=== PATIENT | female | born 1985 | race Hispanic/Latino ===

== ENCOUNTER 2018-05-03 02:16 | Emergency (ER) | payer SELFPAY ==
[2018-05-03 03:30] LABS: Absolute Lymphocytes (CBC) 2.8 K/uL (0.7-4.9); Absolute Monocytes 0.6 K/uL (0.1-1.3); Absolute Neutrophil 6.3 K/uL (1.8-8.0); Basophils % 0.5 % (0-1.3); Eosinophils % 0.3 % (0-4.4); Lymphocytes % 28.7 % (15.3-44.8); MCH 29.7 pg (27.0-35.0); MCV 85.1 fL (80-100); MPV 9.9 fL (7.6-11.3); Monocytes % 5.8 % (3.3-12.3); RBC Red Blood Cell Count 4.59 M/uL (3.86-4.86)
[2018-05-03 03:39] LABS: Albumin 3.9 g/dL (3.4-5.0); Bilirubin Direct 0.1 mg/dL (0-0.2); Bilirubin Total 0.4 mg/dL (0.2-1.0); Potassium 3.9 mmol/L (3.5-5.1); Protein, Total 8.1 g/dL (6.4-8.2)
[2018-05-03] MEDS ORDERED: NA CHLORIDE 0.9% 1,000 ML ONE (03:48)
[2018-05-03] MEDS ORDERED: FENTANYL CITR 100 MCG/2 ML ONE (03:48)
[2018-05-03] MEDS ORDERED: ONDANSETRON 4 MG/2 ML VIAL ONE (03:48)
[2018-05-03] MEDS ORDERED: CEFTRIAXONE/SWI 1gm 1 GM/10 ML SYR ONE (03:48)
[2018-05-03] MEDS ORDERED: FAMOTIDINE 20 MG/2 ML VIAL IV ONE (03:49)
[2018-05-03 05:35] LABS: Urine Culture Reflex Order NOT NEEDED
[2018-05-03 05:36] LABS: Urine Mucus 1+ /HPF (NONE SEEN)
[2018-05-03 05:38] LABS: Urine Bacteria 20-50 /HPF (<20); Urine RBC <5 /HPF (NONE SEEN); Urine Trichomonas PRESENT (NONE SEEN)
[2018-05-03 05:39] LABS: Urine Blood TRACE (NEG); Urine Glucose NEGATIVE (NEG); Urine Protein NEGATIVE (NEG); Urine pH 7.5 (5.0-7.0)
[2018-05-03] MEDS ORDERED: metroNIDAZOLE 500 MG TABLET ONE (07:00)
--- NOTE | 2018-05-03 07:07 | ER ---
Nurse's Notes [facility] Name: Diane Leung Age: 33 yrs Sex: Female : 1985 Arrival Date: 05/03/2018 Time: 02:17 Bed 7 Private MD: Diagnosis: Abdominal tenderness;Cystitis;Functional dyspepsia;Trichomoniasis, unspecified;Other ovarian cysts-4.5 left adnexal cyst Presentation: 05/03 02:17 Presenting complaint: EMS states: Pt c/o epigastric pain x 2 days. Loss of appetite. tl2 Reports vomiting and constipation. Transition of care: patient was not received from another setting of care. Onset of symptoms was May 03, 2018 at 01:30. Risk Assessment: Do you want to hurt yourself or someone else? Patient reports no desire to harm self or others. Initial Sepsis Screen: Does the patient meet any 2 criteria? No. Patient's initial sepsis screen is negative. Does the patient have a suspected source of infection? No. Patient's initial sepsis screen is negative. Care prior to arrival: None. 02:17 Method Of Arrival: EMS: [facility] tl2 02:17 Acuity: LUL 3 tl2 Triage Assessment: 02:17 General: Appears in no apparent distress. uncomfortable, Behavior is calm, cooperative, tl2 appropriate for age. Pain: Complains of pain in epigastric area, right upper quadrant and left upper quadrant Pain does not radiate. Pain: Noted to be grimacing, guarding. Neuro: Level of Consciousness is awake, alert, obeys commands, Oriented to person, place, time, situation. Cardiovascular: Denies chest pain. Respiratory: Airway is patent Respiratory effort is even, unlabored, Respiratory pattern is regular, symmetrical. GI: Abdomen is flat, non-distended, Reports upper abdominal pain. : No signs and/or symptoms were reported regarding the genitourinary system. Derm: Skin is pink, warm \T\ dry. 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 - Social history:: Smoking status: Patient/guardian denies using tobacco. - Ebola Screening: : No symptoms or risks identified at this time. - Family history:: not pertinent. Screenin:22 Abuse screen: Denies threats or abuse. Nutritional screening: No deficits noted. tl2 Tuberculosis screening: No symptoms or risk factors identified. Fall Risk None identified. Assessment: 02:23 GI: Bowel sounds present X 4 quads. Abd is soft Abdomen is tender to palpation in tl2 epigastric area. 03:54 Reassessment: Patient appears in no apparent distress at this time. Patient and/or tl2 family updated on plan of care and expected duration. Pain level reassessed. Patient is alert, oriented x 3, equal unlabored respirations, skin warm/dry/pink. 05:51 Reassessment: Patient appears in no apparent distress at this time. Patient and/or tl2 family updated on plan of care and expected duration. Pain level reassessed. Pt resting calmly. Awaiting results Patient states feeling better. 07:08 Reassessment: Patient appears in no apparent distress at this time. Patient and/or tl2 family updated on plan of care and expected duration. Pain level reassessed. Patient is alert, oriented x 3, equal unlabored respirations, skin warm/dry/pink. Vital Signs: 02:17 BP 135 / 93; Pulse 73; Resp 18; Temp 99.2(O); Pulse Ox 99% on R/A; Weight 77.11 kg; tl2 Height 5 ft. 3 in. (160.02 cm); Pain 10/10; 03:54 BP 122 / 81; Pulse 54; Resp 18; Pulse Ox 98% on R/A; tl2 05:08 BP 125 / 80; Pulse 57; Resp 18; Pulse Ox 100% on R/A; tl2 05:51 BP 112 / 75; Pulse 57; Resp 18; Pulse Ox 98% on R/A; tl2 07:59 BP 115 / 70; Pulse 60; Resp 18; Temp 98.2; Pulse Ox 100% on R/A; hj 02:17 Body Mass Index 30.11 (77.11 kg, 160.02 cm) tl2 ED Course: 02:17 Patient arrived in ED. tl2 02:18 Triage completed. tl2 02:22 Arm band placed on right wrist. tl2 02:22 Patient has correct armband on for positive identification. Bed in low position. Call tl2 light in reach. Side rails up X 1. 02:23 Malcolm Ivory MD is Attending Physician. jonathan 02:46 Hortensia Keller RN is Primary Nurse. tl2 02:46 Inserted saline lock: 20 gauge in right antecubital area, using aseptic technique. tl2 Blood collected. 03:09 Urine Culture Sent. oe 03:09 Urine Microscopic Only Sent. oe 06:[address] via wheelchair. kw1 06:40 CT Abd/Pelvis - W/Contrast In Process Unspecified. EDMS 06:44 CT completed. Patient tolerated procedure well. Patient moved back from CT. kw1 07:06 Rob Medina MD is Referral Physician. jonathan 07:08 Valeria Germain MD is Referral Physician. jonathan 07:09 No provider procedures requiring assistance completed. tl2 07:58 IV discontinued, intact, bleeding controlled, No redness/swelling at site. Pressure hj dressing applied. Administered Medications: 03:54 Drug: NS 0.9% 1000 ml Route: IV; Rate: 1 bolus; Site: right antecubital; tl2 03:55 Drug: Pepcid 20 mg Route: IVP; Site: right antecubital; tl2 07:06 Follow up: Response: No adverse reaction tl2 03:55 Drug: fentaNYL (PF) 50 mcg Route: IVP; Site: right antecubital; tl2 04:30 Follow up: Response: No adverse reaction; Pain is decreased tl2 03:55 Drug: Zofran 4 mg Route: IVP; Site: right antecubital; tl2 07:07 Follow up: Response: No adverse reaction tl2 03:56 Drug: Rocephin - (cefTRIAXone) 1 grams Route: IVPB; Infused Over: 30 mins; Site: right tl2 antecubital; 07:06 Drug: Flagyl 2 grams Route: PO; tl2 07:15 Follow up: Response: No adverse reaction Outcome: 07:07 Discharge ordered by . jonathan 07:57 Discharged to home ambulatory. 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 medication usage, Demonstrated understanding of instructions, follow-up care, medications, Prescriptions given X 4. 07:59 Patient left the ED. hj Signatures: Dispatcher [employer] EDMalcolm Kaplan MD MD cha Joaquin, Henry, RN RN hj Knox, Taylor, RN RN tl2 Yan Martin Kimberly kw1 Corrections: (The following items were deleted from the chart) 02:22 02:17 Presenting complaint: EMS states: Pt c/o epigastric pain, acute onset. Pain does tl2 not radiate. tl2
--- NOTE | 2018-05-03 07:07 | EDPHYS ---
Physician Documentation [facility] Name: Diane Leung Age: 33 yrs Sex: Female : 1985 Arrival Date: 05/03/2018 Time: 02:17 Bed 7 Private MD: ED Physician Malcolm Ivory HPI: 05/03 03:15 This 33 yrs old Female presents to ER via EMS with complaints of Abdominal jonathan Pain. 03:15 The patient presents with abdominal pain in the epigastric area, in the upper abdomen. jonathan Onset: The symptoms/episode began/occurred 2 day(s) ago. The symptoms do not radiate. Associated signs and symptoms: none. The symptoms are described as crampy. Modifying factors: The symptoms are alleviated by nothing, the symptoms are aggravated by movement, pressure. Severity of pain: At its worst the pain was moderate in the emergency department the pain is unchanged. The patient has not experienced similar symptoms in the past. 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 - Social history:: Smoking status: Patient/guardian denies using tobacco. - Ebola Screening: : No symptoms or risks identified at this time. - Family history:: not pertinent. ROS: 03:15 Constitutional: Negative for fever, chills, and weight loss, Eyes: Negative for injury, jonathan pain, redness, and discharge, ENT: Negative for injury, pain, and discharge, Neck: Negative for injury, pain, and swelling, Cardiovascular: Negative for chest pain, palpitations, and edema, Respiratory: Negative for shortness of breath, cough, wheezing, and pleuritic chest pain, Back: Negative for injury and pain, : Negative for injury, bleeding, discharge, and swelling, MS/Extremity: Negative for injury and deformity, Skin: Negative for injury, rash, and discoloration, Neuro: Negative for headache, weakness, numbness, tingling, and seizure, Psych: Negative for depression, anxiety, suicide ideation, homicidal ideation, and hallucinations, Allergy/Immunology: Negative for hives, rash, and allergies, Endocrine: Negative for neck swelling, polydipsia, polyuria, polyphagia, and marked weight changes, Hematologic/Lymphatic: Negative for swollen nodes, abnormal bleeding, and unusual bruising. 03:15 Abdomen/GI: Positive for abdominal pain, of the epigastric area, right upper quadrant and left upper quadrant. Exam: 03:15 Constitutional: This is a well developed, well nourished patient who is awake, alert, jonathan and in no acute distress. Head/Face: Normocephalic, atraumatic. Eyes: Pupils equal round and reactive to light, extra-ocular motions intact. Lids and lashes normal. Conjunctiva and sclera are non-icteric and not injected. Cornea within normal limits. Periorbital areas with no swelling, redness, or edema. ENT: Nares patent. No nasal discharge, no septal abnormalities noted. Tympanic membranes are normal and external auditory canals are clear. Oropharynx with no redness, swelling, or masses, exudates, or evidence of obstruction, uvula midline. Mucous membranes moist. Neck: Trachea midline, no thyromegaly or masses palpated, and no cervical lymphadenopathy. Supple, full range of motion without nuchal rigidity, or vertebral point tenderness. No Meningismus. Chest/axilla: Normal chest wall appearance and motion. Nontender with no deformity. No lesions are appreciated. Cardiovascular: Regular rate and rhythm with a normal S1 and S2. No gallops, murmurs, or rubs. Normal PMI, no JVD. No pulse deficits. Respiratory: Lungs have equal breath sounds bilaterally, clear to auscultation and percussion. No rales, rhonchi or wheezes noted. No increased work of breathing, no retractions or nasal flaring. Back: No spinal tenderness. No costovertebral tenderness. Full range of motion. Skin: Warm, dry with normal turgor. Normal color with no rashes, no lesions, and no evidence of cellulitis. MS/ Extremity: Pulses equal, no cyanosis. Neurovascular intact. Full, normal range of motion. Neuro: Awake and alert, GCS 15, oriented to person, place, time, and situation. Cranial nerves II-XII grossly intact. Motor strength 5/5 in all extremities. Sensory grossly intact. Cerebellar exam normal. Normal gait. Psych: Awake, alert, with orientation to person, place and time. Behavior, mood, and affect are within normal limits. 03:15 Abdomen/GI: Inspection: abdomen appears normal, Bowel sounds: normal, Palpation: abdomen is soft and non-tender, Liver: no appreciated palpable abnormalities, Hernia: not appreciated. Vital Signs: 02:17 BP 135 / 93; Pulse 73; Resp 18; Temp 99.2(O); Pulse Ox 99% on R/A; Weight 77.11 kg; tl2 Height 5 ft. 3 in. (160.02 cm); Pain 10/10; 03:54 BP 122 / 81; Pulse 54; Resp 18; Pulse Ox 98% on R/A; tl2 05:08 BP 125 / 80; Pulse 57; Resp 18; Pulse Ox 100% on R/A; tl2 05:51 BP 112 / 75; Pulse 57; Resp 18; Pulse Ox 98% on R/A; tl2 07:59 BP 115 / 70; Pulse 60; Resp 18; Temp 98.2; Pulse Ox 100% on R/A; hj 02:17 Body Mass Index 30.11 (77.11 kg, 160.02 cm) tl2 MDM: 02:23 Patient medically screened. [facility] 03:17 Data reviewed: vital signs, nurses notes, lab test result(s), radiologic studies, CT jonathan scan. 05/03 02:49 Order name: Amylase, Serum; Complete Time: 04:34 2 05/03 02:49 Order name: Hepatic Function; Complete Time: 04:34 2 05/03 02:49 Order name: Lipase; Complete Time: 04:34 2 05/03 02:49 Order name: Lipase [facility] 05/03 02:56 Order name: CBC with Diff; Complete Time: 04:34 2 05/03 02:56 Order name: Urine Microscopic Only; Complete Time: 06:33 tl2 05/03 02:56 Order name: Urine Culture [facility] 05/03 03:09 Order name: Urine Dipstick--Ancillary (enter results); Complete Time: 06:33 oe 05/03 03:11 Order name: Urine --Ancillary (enter results); Complete Time: 06:33 oe 05/03 03:14 Order name: CT Abd/Pelvis - W/Contrast jonathan 05/03 03:24 Order name: Basic Metabolic Panel; Complete Time: 04:34 EDMS 05/03 02:49 Order name: Urine Dipstick-Ancillary (obtain specimen); Complete Time: 02:49 tl2 05/03 02:49 Order name: Urine Test (obtain specimen); Complete Time: 02:49 tl2 Administered Medications: 03:54 Drug: NS 0.9% 1000 ml Route: IV; Rate: 1 bolus; Site: right antecubital; tl2 03:55 Drug: Pepcid 20 mg Route: IVP; Site: right antecubital; tl2 07:06 Follow up: Response: No adverse reaction tl2 03:55 Drug: fentaNYL (PF) 50 mcg Route: IVP; Site: right antecubital; tl2 04:30 Follow up: Response: No adverse reaction; Pain is decreased tl2 03:55 Drug: Zofran 4 mg Route: IVP; Site: right antecubital; tl2 07:07 Follow up: Response: No adverse reaction tl2 03:56 Drug: Rocephin - (cefTRIAXone) 1 grams Route: IVPB; Infused Over: 30 mins; Site: right tl2 antecubital; 07:06 Drug: Flagyl 2 grams Route: PO; tl2 07:15 Follow up: Response: No adverse reaction hj Disposition: 05/03/18 07:07 Discharged to Home. Impression: Abdominal tenderness, Cystitis, Functional dyspepsia, Trichomoniasis, unspecified, Other ovarian cysts - 4.5 left adnexal cyst. - Condition is Stable. - Discharge Instructions: Abdominal Pain, Adult, Dysuria, Ovarian Cyst, Abdominal Pain, Adult, [id number]. - Prescriptions for Bentyl 20 mg Oral Tablet - take 1 tablet by ORAL route every 6 hours As needed; 20 tablet. Pepcid 20 mg Oral Tablet - take 1 tablet by ORAL route every 12 hours for 10 days; 20 tablet. Zofran 4 mg Oral Tablet - take 1 tablet by ORAL route every 12 hours As needed; 20 tablet. Cipro 500 mg Oral Tablet - take 1 tablet by ORAL route every 12 hours for 7 days; 14 tablet. - Medication Reconciliation Form, Thank You Letter, Antibiotic Education, Prescription Opioid Use form. - Follow up: Private Physician; When: 2 - 3 days; Reason: Recheck today's complaints, Continuance of care, Re-evaluation by your physician. Follow up: Rob Medina; When: 2 - 3 days; Reason: Recheck today's complaints, Continuance of care, Re-evaluation by your physician. Follow up: Valeria Germain MD; When: 2 - 3 days; Reason: Recheck today's complaints, Re-evaluation by your physician. - Problem is new. - Symptoms have improved. Signatures: Dispatcher [employer] [facility] Malcolm Ivory MD MD cha Joaquin, Henry RN RN Hortensia Huang RN RN tl2 Corrections: (The following items were deleted from the chart) 06:29 04:37 BASIC METABOLIC PANEL+[id number].LAB.BRZ ordered. [facility] 07:08 07:07 05/03/2018 07:07 Discharged to Home. Impression: Abdominal tenderness; Cystitis; jonathan Functional dyspepsia; Trichomoniasis, unspecified; Other ovarian cysts - 4.5 left adnexal cyst. Condition is Stable. Discharge Instructions: Abdominal Pain, Adult, Dysuria, Abdominal Pain, Adult, [id number]. Prescriptions for Bentyl 20 mg Oral Tablet - take 1 tablet by ORAL route every 6 hours As needed; 20 tablet, Pepcid 20 mg Oral Tablet - take 1 tablet by ORAL route every 12 hours for 10 days; 20 tablet, Zofran 4 mg Oral Tablet - take 1 tablet by ORAL route every 12 hours As needed; 20 tablet, Cipro 500 mg Oral Tablet - take 1 tablet by ORAL route every 12 hours for 7 days; 14 tablet. and Forms are Medication Reconciliation Form, Thank You Letter, Antibiotic Education, Prescription Opioid Use. Follow up: Private Physician; When: 2 - 3 days; Reason: Recheck today's complaints, Continuance of care, Re-evaluation by your physician. Follow up: Rob Medina; When: 2 - 3 days; Reason: Recheck today's complaints, Continuance of care, Re-evaluation by your physician. Problem is new. Symptoms have improved. jonathan 07:59 07:08 05/03/2018 07:07 Discharged to Home. Impression: Abdominal tenderness; Cystitis; hj Functional dyspepsia; Trichomoniasis, unspecified; Other ovarian cysts - 4.5 left adnexal cyst. Condition is Stable. Discharge Instructions: Abdominal Pain, Adult, Dysuria, Abdominal Pain, Adult, [id number], Ovarian Cyst. Prescriptions for Bentyl 20 mg Oral Tablet - take 1 tablet by ORAL route every 6 hours As needed; 20 tablet, Pepcid 20 mg Oral Tablet - take 1 tablet by ORAL route every 12 hours for 10 days; 20 tablet, Zofran 4 mg Oral Tablet - take 1 tablet by ORAL route every 12 hours As needed; 20 tablet, Cipro 500 mg Oral Tablet - take 1 tablet by ORAL route every 12 hours for 7 days; 14 tablet. and Forms are Medication Reconciliation Form, Thank You Letter, Antibiotic Education, Prescription Opioid Use. Follow up: Private Physician; When: 2 - 3 days; Reason: Recheck today's complaints, Continuance of care, Re-evaluation by your physician. Follow up: Rob Medina; When: 2 - 3 days; Reason: Recheck today's complaints, Continuance of care, Re-evaluation by your physician. Follow up: Valeria Germain; When: 2 - 3 days; Reason: Recheck today's complaints, Re-evaluation by your physician. Problem is new. Symptoms have improved. jonathan
--- NOTE | 2018-05-03 08:24 | RAD REPORT ---
EXAM DESCRIPTION: CT - Abdomen Pelvis W Contrast - 05/03/2018 6:40 am CLINICAL HISTORY: Epigastric pain, abdominal pain, vomiting, loss of appetite A preliminary report was provided at the time of the study and reviewed prior to final report. COMPARISON: None. TECHNIQUE: Biphasic, helical CT imaging of the abdomen and pelvis was performed following 100 ml non -ionic IV contrast. Oral contrast was given. All CT scans are performed using dose optimization technique as appropriate and may include automated exposure control or mA/KV adjustment according to patient size. FINDINGS: No suspicious findings in the lung bases. The liver, spleen, and pancreas show no suspicious findings. Liver attenuation is borderline fatty in filtrated. No gallbladder or biliary tree abnormality. Gallstones can be occult. Symmetric renal function is seen with no hydronephrosis or suspicious renal mass. No pyelonephritis o r acute renal parenchymal process. Contracted urinary bladder shows no suspicious finding. No uterus or right ovarian suspicious finding. Left ovary contains a 4.3 centimeter cyst with an additional 12 millimeter cyst or follicle. Trace amount of fluid adjacent to the left ovary may be physiologic. Min imal leakage from the dominant cyst is possible. No rupture or hemorrhage suspected. No dilated bowel loops or bowel wall thickening. No appendicitis findings. There is slight motion deg radation near the cecum. Right-side of the colon assessment is limited due to incomplete distension a nd motion artifact. Patient has scattered mesenteric lymph nodes and a few nonspecific periaortic lym ph nodes. No bulky lymphadenopathy pattern. No free air or pneumatosis. No suspicious free fluid collection. No hernia, mass or bulky lymphaden opathy. No suspicious bony findings. IMPRESSION: No appendicitis or other surgically emergent finding. A few small nonspecific periaortic and mesenteric lymph nodes present. Left ovarian 4.3 centimeter cyst. No rupture or hemorrhage seen. Follow-up can be obtained to assure no further growth. Liver is borderline fatty infiltrated.
== END 2018-05-03 07:59 | disposition home or self-care (01) ==
LOC: ER 02:16
DX: N30.90 Cystitis, unspecified without hematuria (principal); A59.9 Trichomoniasis, unspecified; K30 Functional dyspepsia; N83.292 Other ovarian cyst, left side
CPT/HCPCS: 36415; 74177; 80048; 80076; 81003; 81015; 81025; 82150; 83690; 85025; 87086; 87088; 96374; 96375; 99284; J0696; J2405; J3010; J7030; Q9967